=== PATIENT | male | born 1990 | race Caucasian/White ===

== ENCOUNTER 2017-09-22 17:59 | Emergency (ER) | payer OTHER ==
[~2017-09-22] VITALS: Ht 180.3 cm; Wt 88.5 kg
[2017-09-22] MEDS ORDERED: ONDANSETRON PF 4 MG/2 ML VIAL. IV ONE (18:45)
[2017-09-22] MEDS ORDERED: HYDROmorphone PF 1 MG/ML DISP.SYRIN IV ONE (18:45)
[2017-09-22] MEDS ORDERED: LIDO:MAALOX 1:1 20 ML SINGLE DOSE PO ONE (18:45)
[2017-09-22] MEDS ORDERED: IV NORMAL SALINE 1,000ML 1,000 ML IV ONE (18:45)
[2017-09-22] MEDS ORDERED: IOHEXOL 300 MG/ML 75 ML VIAL. IV ONE (18:45)
[2017-09-22 18:48] LABS: BASO # 0.1 x10^3/uL (0.0-0.2); BASO % 1 % (0-3); EOS # 0.2 x10^3/uL (0.0-0.7); EOS % 2 % (0-3); HEMATOCRIT 45.6 % (39.0-53.0); HEMOGLOBIN 15.5 g/dL (13.0-17.5); LYMPH # 2.3 x10^3/uL (1.0-4.8); LYMPH % 24 % (24-48); MEAN CORPUSCULAR HEMOGLOBIN 28 pg (25-35); MEAN CORPUSCULAR HGB CONC 34 g/dL (31-37); MEAN CORPUSCULAR VOLUME 84 fL (79-100); MONO # 0.7 x10^3/uL (0.0-1.1); MONO % 7 % (0-9); NEUT # 6.6 x10^3uL (1.8-7.7); NEUT % 68 % (31-73); PLATELET COUNT 349 x10^3/uL (140-400); RED BLOOD COUNT 5.45 x10^6/uL (4.30-5.70); RED CELL DISTRIBUTION WIDTH 14.5 % (11.5-14.5); WHITE BLOOD COUNT 9.8 x10^3/uL (4.0-11.0)
[2017-09-22 19:01] LABS: ALBUMIN 4.3 g/dL (3.4-5.0); CALCIUM 9.3 mg/dL (8.5-10.1); CREATININE 1.1 mg/dL (0.7-1.3); GFR 79.7; POTASSIUM 3.9 mmol/L (3.5-5.1); TOTAL BILIRUBIN 0.4 mg/dL (0.2-1.0); TOTAL PROTEIN 8.7 g/dL (6.4-8.2)
--- NOTE | 2017-09-22 20:08 | RAD ---
CT scan of the abdomen and pelvis with contrast 09/22/2017 CLINICAL HISTORY: Right upper quadrant abdominal pain with elevated liver function tests. TECHNIQUE: After the intravenous administration of 75 cc of Omnipaque 300 only, contiguous, 5 mm axial sections were obtained through the abdomen and pelvis. One or more of the following individualized dose reduction techniques were utilized for this study: 1. Automated exposure control. 2. Adjustment of the mA and/or kV according to patient size. 3. Use of iterative reconstruction technique. FINDINGS: No previous imaging studies are available for comparison. Images through the lung bases demonstrate minimal dependent subsegmental atelectasis bilaterally. The liver parenchyma has a decreased attenuation consistent with mild fatty infiltration. The spleen, pancreas, adrenal glands and kidneys are within normal limits. The abdominal aorta tapers normally. The gallbladder is contracted. No free fluid or free air is seen within the abdomen. There is no evidence of bowel obstruction. Surgical clips are seen posterior to the cecum consistent with an appendectomy. Images through the pelvis demonstrate the urinary bladder distended with urine. No free fluid is seen. Very mild S-shaped curvature of the thoracolumbar spine is seen. IMPRESSION: No acute abnormality is seen. Electronically signed by: Sang Lr MD (09/22/2017 8:04 PM) [facility]
[2017-09-22 20:20] VITALS: BP 131/71
[2017-09-22] MEDS ORDERED: TRAM-48 PO (20:41)
[2017-09-22] MEDS ORDERED: ONDA4TAB10 SL (20:41)
--- NOTE | 2017-09-22 20:41 | PHYS DOC ---
Past History Past Medical History: Other Past Surgical History: Appendectomy Alcohol Use: None Drug Use: None Adult General Chief Complaint Chief Complaint: ABDOMINAL PAIN HPI HPI Patient is a 27-year-old gentleman who has a history significant for alpha-1 antitrypsin disorder presents to the ER today secondary to tenderness and discomfort to his right upper quadrant. Patient reports she has pain with deep inspiration. Patient reports pain is right underneath his last rib on the lateral aspect of his abdominal area. Patient denies any fevers shakes chills nausea vomiting diarrhea chest pain shortness of breath cough cold rhinorrhea. Patient has any change in color stool or urine. Patient denies any exacerbating or relieving factors. Patient denies any dysuria frequency urgency hematuria. Patient reports the pain is constant and increases with inspiration and palpation and rotation of his torso. Patient reports he had a recent biopsy of his liver approximately one month ago and has been diagnosed with him for 1 antitrypsin this deficiency disorder. Patient denies any recent cough cold or pneumonia type symptoms. Review of systems: Constitutional: Denies fever or chills Eyes: Denies change in visual acuity, redness, or eye pain HENT: Denies nasal congestion or sore throat All other systems were reviewed and found to be within normal limits, except as documented in this note. Physical exam Constitutional: Well developed, well nourished, no acute distress, non-toxic appearance. HENT: Normocephalic, atraumatic, bilateral external ears normal, oropharynx moist, no oral exudates, nose normal. Eyes: PERRLA, EOMI, conjunctiva normal, no discharge. Neck: Normal range of motion, no tenderness, supple, no stridor. Cardiovascular:Heart rate regular rhythm, Lungs & Thorax: Bilateral breath sounds clear to auscultation Abdomen: Nondistended. Skin: Warm, dry, no erythema, no rash. Back: No tenderness, no CVA tenderness. Extremities: No tenderness, no cyanosis, no clubbing, ROM intact, no edema. Neurologic: Alert and oriented X 3, normal motor function, normal sensory function, no focal deficits noted. Psychologic: Affect normal, judgement normal, mood normal. ER physical exam is significant for: 100% reproducible tenderness to palpation to his pulse rib on the right side laterally. Patient has no Meade sign. Patient has no tender to McBurney's point. Patient does not present with signs or symptoms O be consistent with a surgical abdomen. Patient does not present with signs or symptoms O be consistent with a pulmonary embolism. Patient is CT scan of the abdomen pelvis which revealed no acute pathology. Patient is CBC, CMP, lipase are all unremarkable. Patient has been given adequate analgesia in the ED and is currently pain-free after multiple re-evaluations. Assessment and plan: 1. 19-year-old gentleman who presents here today secondary to right flank pain. Patient reports the pain is reproducible. Patient had a negative workup in the ED. Etiology of the patient's pain is unclear at this time however we have ruled out any acute pathology including his HEMATOMA, ABSCESS, PERFORATION. PATIENT BE DISCHARGED HOME AND WILL BE INSTRUCTED TO FOLLOW-UP WITH HIS FAMILY DOCTOR In one to 2 days for reevaluation. Current Medications Current Medications Current Medications Medications (Trade) Dose Ordered Sig/Merlin Start Time Stop Time Status Last Admin Dose Admin Hydromorphone HCl (Dilaudid) 1 mg 1X ONCE 09/22/17 18:45 09/22/17 18:46 DC 09/22/17 18:55 1 MG Iohexol (Omnipaque 300 Mg/ml) 75 ml 1X ONCE 09/22/17 18:45 09/22/17 18:46 DC 09/22/17 19:15 75 ML Multi-Ingredient Mouthwash/Gargle (Gi Cocktail) 20 ml 1X ONCE 09/22/17 18:45 09/22/17 18:46 DC 09/22/17 18:53 20 ML Ondansetron HCl (Zofran) 4 mg 1X ONCE 09/22/17 18:45 09/22/17 18:46 DC 09/22/17 18:54 4 MG Sodium Chloride 1,000 ml @ 1,000 mls/hr 1X ONCE 09/22/17 18:45 09/22/17 19:44 DC 09/22/17 18:55 1,000 MLS/HR Allergies Allergies Allergies Coded Allergies Type Severity Reaction Last Updated Verified No Known Drug Allergies 09/22/17 No Current Patient Data Vital Signs Vital Signs Date Time Temp Pulse Resp B/P (MAP) Pulse Ox O2 Delivery O2 Flow Rate FiO2 09/22/17 18:55 16 99 Room Air 09/22/17 18:05 97.9 116 Lab Results Laboratory Tests Test 11/21/17 18:25 White Blood Count 9.8 x10^3/uL (4.0-11.0) Red Blood Count 5.45 x10^6/uL (4.30-5.70) Hemoglobin 15.5 g/dL (13.0-17.5) Hematocrit 45.6 % (39.0-53.0) Mean Corpuscular Volume 84 fL (79-100) Mean Corpuscular Hemoglobin 28 pg (25-35) Mean Corpuscular Hemoglobin Concent 34 g/dL (31-37) Red Cell Distribution Width 14.5 % (11.5-14.5) Platelet Count 349 x10^3/uL (140-400) Neutrophils (%) (Auto) 68 % (31-73) Lymphocytes (%) (Auto) 24 % (24-48) Monocytes (%) (Auto) 7 % (0-9) Eosinophils (%) (Auto) 2 % (0-3) Basophils (%) (Auto) 1 % (0-3) Neutrophils # (Auto) 6.6 x10^3uL (1.8-7.7) Lymphocytes # (Auto) 2.3 x10^3/uL (1.0-4.8) Monocytes # (Auto) 0.7 x10^3/uL (0.0-1.1) Eosinophils # (Auto) 0.2 x10^3/uL (0.0-0.7) Basophils # (Auto) 0.1 x10^3/uL (0.0-0.2) Prothrombin Time 10.7 SEC (9.4-11.4) Prothrombin Time INR 1.0 (0.9-1.1) Sodium Level 139 mmol/L (136-145) Potassium Level 3.9 mmol/L (3.5-5.1) Chloride Level 103 mmol/L (98-107) Carbon Dioxide Level 25 mmol/L (21-32) Anion Gap 11 (6-14) Blood Urea Nitrogen 15 mg/dL (8-26) Creatinine 1.1 mg/dL (0.7-1.3) Estimated GFR (Cockcroft-Gault) 79.7 BUN/Creatinine Ratio 14 (6-20) Glucose Level 102 mg/dL (70-99) H Calcium Level 9.3 mg/dL (8.5-10.1) Total Bilirubin 0.4 mg/dL (0.2-1.0) Aspartate Amino Transferase (AST) 50 U/L (15-37) H Alanine Aminotransferase (ALT) 123 U/L (16-63) H Alkaline Phosphatase 76 U/L (46-116) Total Protein 8.7 g/dL (6.4-8.2) H Albumin 4.3 g/dL (3.4-5.0) Albumin/Globulin Ratio 1.0 (1.0-1.7) EKG EKG [] Radiology/Procedures Radiology/Procedures [] Course & Med Decision Making Course & Med Decision Making Pertinent Labs and Imaging studies reviewed. (See chart for details) [] Dragon Disclaimer Dragon Disclaimer This electronic medical record was generated, in whole or in part, using a voice recognition dictation system. Departure Departure: Impression: Primary Impression: Abdominal pain Disposition: 01 HOME, SELF-CARE Condition: IMPROVED Referrals: ROX PATINO DO (PCP) Patient Instructions: Abdominal Pain (Nonspecific) Scripts Ondansetron (ZOFRAN ODT) 4 Mg Tab.rapdis 1 TAB SL Q8HRS for NAUSEA, #15 TAB Prov: ZHANE DE LA VEGA MD 09/22/17 Tramadol Hcl (ULTRAM) 50 Mg Tablet 50 MG PO PRN Q6HRS Y for PAIN, #20 TAB Prov: ZHANE DE LA VEGA MD 09/22/17 ZHANE DE LA VEGA MD Sep 22, 2017 20:41
== END 2017-09-22 20:40 | disposition home or self-care (01) ==
LOC: ER 17:59
DX: R10.11 Right upper quadrant pain (principal); Z90.49 Acquired absence of other specified parts of digestive tract
CPT/HCPCS: 36415; 74177; 80053; 85025; 85610; 96361; 96374; 96375; 99285; J1170; J2405; Q9967; J7030